=== PATIENT | female | born 1970 | race Caucasian/White ===

== ENCOUNTER 2023-02-06 08:05 | Day surgery (SDC) | payer OTHER ==
[2023-02-06] MEDS ORDERED: LIDOCAINE HCL 1% 50 MG/5 ML VL PF IJ ONE (08:06)
[2023-02-06] MEDS ORDERED: Sensorcaine 0.25% 10 ML IJ ONE (08:06)
[2023-02-06] MEDS ORDERED: Versed 2 MG/2 ML Injection ONE ×2 (09:19→09:59)
[2023-02-06] MEDS ORDERED: DIPRIVAN 200 MG/20 ML IV ONE ×2 (09:59→10:12)
[2023-02-06] MEDS ORDERED: Lactated Ringers 1,000 ML IV ONE (10:27)
--- NOTE | 2023-02-06 11:35 | XRAY ---
Indication: Right lumbar sympathetic nerve block. Intraoperative fluoroscopy provided for 1 minute 35 seconds. 6 digital spot images submitted for interpretation demonstrates right posterior needle tip projecting just anterior to L2. Small amount of contrast injected for needle tip placement. Correlate with intraoperative findings/report.
--- NOTE | 2023-02-06 13:56 | XRAY ---
One minute and 35 seconds of fluoroscopy was used in surgery for a right lumbar sympathetic nerve block.
== END 2023-02-06 10:41 | disposition home or self-care (01) ==
LOC: SDC-PAIN 08:05
PROVIDERS: ATTEND Psychiatry & Neurology Pain Medicine
DX: G90.529 Complex regional pain syndrome I of unspecified lower limb (principal); E11.9 Type 2 diabetes mellitus without complications; Z79.899 Other long term (current) drug therapy
CPT/HCPCS: 64520; 72100; 77002; 77003; 82947; J2001; J2250; J2704; Q9966

== ENCOUNTER 2023-03-13 09:16 | Day surgery (SDC) | payer OTHER ==
[2023-03-13] MEDS ORDERED: LIDOCAINE HCL 1% 50 MG/5 ML VL PF IJ ONE (09:17)
[2023-03-13] MEDS ORDERED: Sensorcaine 0.25% 10 ML IJ ONE (09:17)
[2023-03-13] MEDS ORDERED: Versed 2 MG/2 ML Injection ONE (10:46)
[2023-03-13] MEDS ORDERED: DIPRIVAN 200 MG/20 ML IV ONE ×2 (11:33→11:44)
--- NOTE | 2023-03-13 13:55 | XRAY ---
Indication: Right lumbar sympathetic nerve block. Intraoperative fluoroscopy provided for 58 seconds. 5 digital spot images submitted for interpretation demonstrates right posterior needle tip projecting just anterior to L1-L2 interspace. Small amount of contrast injected for needle tip placement. Correlate with intraoperative findings/report.
--- NOTE | 2023-03-13 14:24 | XRAY ---
58 seconds of fluoroscopy was used in surgery for a right lumbar sympathetic nerve block.
[2023-03-13] MEDS ORDERED: Lactated Ringers 1,000 ML IV ONE (15:02)
== END 2023-03-13 12:07 | disposition home or self-care (01) ==
LOC: SDC-PAIN 09:16
PROVIDERS: ATTEND Psychiatry & Neurology Pain Medicine
DX: G90.529 Complex regional pain syndrome I of unspecified lower limb (principal); E11.9 Type 2 diabetes mellitus without complications; Z79.899 Other long term (current) drug therapy
CPT/HCPCS: 64520; 72100; 77002; 82947; J2001; J2250; J2704; Q9966

== ENCOUNTER 2023-04-10 07:37 | Day surgery (SDC) | payer OTHER ==
[2023-04-10] MEDS ORDERED: XYLOCAINE-MPF 1% 5ML SDV IJ ONE (07:38)
[2023-04-10] MEDS ORDERED: BUPIVACAINE 0.5% VIAL IJ ONE (07:38)
[2023-04-10] MEDS ORDERED: DIPRIVAN 200 MG/20 ML IV ONE (08:27)
[2023-04-10] MEDS ORDERED: Versed 2 MG/2 ML Injection ONE (08:36)
[2023-04-10] MEDS ORDERED: Lactated Ringers 1,000 ML IV ONE (10:55)
--- NOTE | 2023-04-10 11:24 | XRAY ---
Indication: Right lumbar sympathetic nerve block. Intraoperative fluoroscopy provided for 46 seconds. 4 digital spot images submitted for interpretation demonstrates right posterior needle tip projecting just anterior to L2. Small amount of contrast injected for needle tip placement. Correlate with intraoperative findings/report.
--- NOTE | 2023-04-10 11:27 | XRAY ---
46 seconds of fluoroscopy was used in surgery for a right lumbar sympathetic nerve block.
== END 2023-04-10 09:05 | disposition home or self-care (01) ==
LOC: SDC-PAIN 07:37
PROVIDERS: ATTEND Psychiatry & Neurology Pain Medicine
DX: G90.529 Complex regional pain syndrome I of unspecified lower limb (principal); E11.9 Type 2 diabetes mellitus without complications; Z79.899 Other long term (current) drug therapy
CPT/HCPCS: 64520; 72100; 77002; 77003; 82947; J2250; J2704; Q9966

== ENCOUNTER 2024-01-02 06:38 | Day surgery (SDC) | payer OTHER ==
[2024-01-02] MEDS ORDERED: LIDOCAINE HCL 1% 50 MG/5 ML VL PF IJ ONE (06:39)
[2024-01-02] MEDS ORDERED: Sodium Chloride 0.9(Preservative Free) 10 ML IJ ONE (06:39)
[2024-01-02] MEDS ORDERED: DIPRIVAN 200 MG/20 ML IV ONE ×2 (07:50→08:15)
[2024-01-02] MEDS ORDERED: Xylocaine-Mpf 2% 5 Ml Vial ONE (08:08)
[2024-01-02] MEDS ORDERED: BACIGUENT 30 GM ONE (08:19)
--- NOTE | 2024-01-02 10:10 | XRAY ---
Indication: Spinal cord stimulator trial. Intraoperative fluoroscopy provided for 1 minute 50 seconds. 11 digital spot image submitted for interpretation demonstrates introducer needle tip projecting posterior to L1. Ultimately single epidural lead inserted with tip projecting T9. Correlate with intraoperative findings/report.
--- NOTE | 2024-01-02 10:12 | XRAY ---
One minute and 50 seconds of fluoroscopy was used in surgery for a spinal cord stimulator trial.
[2024-01-02] MEDS ORDERED: Lactated Ringers 1,000 ML IV ONE (10:28)
== END 2024-01-02 09:25 | disposition home or self-care (01) ==
LOC: SDC-PAIN 06:38
PROVIDERS: ATTEND Psychiatry & Neurology Pain Medicine
DX: M96.1 Postlaminectomy syndrome, not elsewhere classified (principal); E11.9 Type 2 diabetes mellitus without complications
CPT/HCPCS: 63650; 72100; 77002; 82947; C1897; J2001; J2704; A9270-GY

== ENCOUNTER 2024-07-09 14:30 | Day surgery (SDC) | payer OTHER ==
[2024-07-09] MEDS ORDERED: BUPIVACAINE 0.5% VIAL IJ ONE (14:31)
[2024-07-09] MEDS ORDERED: Depo-Medrol 40 MG/ML IM ONE (14:31)
[2024-07-09] MEDS ORDERED: LIDOCAINE HCL 1% AMPUL 5 ML IJ ONE (14:31)
--- NOTE | 2024-07-09 16:52 | XRAY ---
Indication: Right knee injection. Intraoperative fluoroscopy provided for 4 seconds. Single digital spot image submitted for interpretation demonstrates needle tip projecting over right femur intercondylar notch. Small amount of contrast injected for needle tip placement. Correlate with intraoperative findings/report.
--- NOTE | 2024-07-09 16:52 | XRAY ---
Indication: Left knee injection. Intraoperative fluoroscopy provided for 5 seconds. Single digital spot image submitted for interpretation demonstrates needle tip projecting over left femur intercondylar notch. Small amount of contrast injected for needle tip placement. Correlate with intraoperative findings/report.
--- NOTE | 2024-07-10 09:52 | XRAY ---
4 seconds of fluoroscopy was used in surgery for a right intra-articular knee injection.
--- NOTE | 2024-07-10 09:52 | XRAY ---
5 seconds of fluoroscopy was used in surgery for a left intra-articular knee injection.
== END 2024-07-09 16:22 | disposition home or self-care (01) ==
LOC: SDC-PAIN 14:30
PROVIDERS: ATTEND Psychiatry & Neurology Pain Medicine
DX: M17.0 Bilateral primary osteoarthritis of knee (principal); E11.9 Type 2 diabetes mellitus without complications
CPT/HCPCS: 20610; 73560; 77002; 82947